=== PATIENT | male | born 1955 | race Caucasian/White ===

== ENCOUNTER 2019-05-27 13:55 | Outpatient (CLI) | payer MEDICAID, SELFPAY | END 2019-05-27 14:15 | PROVIDERS: Visit Provider Orthopaedic Surgery | DX: Z01.818 Encounter for other preprocedural examination (principal) ==

== ENCOUNTER 2019-06-02 05:31 | Day surgery (SDC) | payer MEDICAID, SELFPAY ==
[2019-05-27 13:50] VITALS: BP 175/97; PULSE 94; RESP 16; TEMP 37.4; O2SAT 97
--- NOTE | 2019-05-28 12:26 | NUR.NOTE ---
05/28/19 1225: This RN spoke with pt. on phone regarding high BP. Pt. stated he visited [facility] express clinic, Yudy Hairston DNP. BP reported by pt was 136/86 pulse 61, pt. 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 Pt. stated he is going to keep a BP log daily up until surgery, and will call pre-op with any changes. This RN left a message with [facility] for provider notes to be faxed to pre-op. Wally Caro CRNA aware of current situation with pt, and is informed of phone call. All are in agreement of plan to assess DOS, and for pt. to call if he has elevated BP from now until DOS.Nursing Note:
--- NOTE | 2019-06-02 11:38 | W.PM.DSUDISC ---
Discharge Plan Disposition Patient Disposition: HOME Condition: Good Discharge Details Reason For Visit: Rotator cuff surgery cancelled due to hypertension Attending Provider: Jed Fontenot Primary Care Provider: Unknown,Unknown Home Meds and New Rx's Prescriptions: New tizanidine 4 mg tablet 4 mg PO BID PRN (Reason: muscle spasticity) Qty: 30 RF: 0 tramadol 50 mg tablet 50 mg PO Q6H PRN (Reason: pain) Qty: 60 RF: 0 amlodipine 2.5 mg tablet 2.5 mg PO DAILY Qty: 30 RF: 0 hydrochlorothiazide 12.5 mg tablet 12.5 mg PO DAILY Qty: 30 RF: 0 Continued tizanidine 4 mg tablet 4 mg PO BID PRNRF: 0 clonazepam 0.5 mg tablet 0.5 mg PO DAILY RF: 0 lidocaine 5 % adhesive patch,medicated 3 patch TP DAILY RF: 0 naproxen 500 mg tablet 500 mg PO BID RF: 0 oxycodone-acetaminophen 5-325 mg tablet 1 tab PO Q8H MDD 15 PRN (Reason: pain) Qty: 9 RF: 0 zolpidem 10 MG tablet 10 mg PO HS PRN PRNRF: 0 Centrum Silver 1 EACH tablet 1 tab PO DAILY RF: 0 gabapentin 300 mg Capsule 300 mg PO TID RF: 0 Discharge Instructions Additional Instructions: Follow up with for blood pressure check in 2 weeks. Take the blood pressure medications daily --amlodipine and hydrochlorothiazide.. Activity:: Activity as Tolerated Diet:: As Tolerated Discharge Orders Discharge Orders: Discharge Order (Routine); Ordered 06/02/19 Ordered By: Jed Fontenot DS: Diagnosis Discharge Diagnosis (1) Tendonitis of left rotator cuff: Status: Acute (2) Hypertension: Status: Chronic
--- NOTE | 2019-06-02 13:12 | NUR.NOTE ---
Pt's surgery for left rotator cuff repair canceled today per Dr. Fontenot r/t uncontrolled blood pressure (see previous notes). Care management in to speak with pt prior to discharge to discuss available resources and establishing care with PCP near pt's home. Pt also received [address] Fontenot. FYI: Pt became quite angry with escalating behavior when nurse was giving pt rx for Tramadol with pt standing up and telling nurse to keep rx for Tramadol because it didn't do anything for him and was glorified aspirin. Pt made aware that he could receive free lunch for him and his transportation in cafeteria, pt stated he didn't want anything from this place! Dr. Fontenot made aware of pt's behavior and shredded rx for Tramadol and distributed rx for Oxycodone with APAP (5/325) which did make pt appear to be more at ease. RN walked pt out of [facility] where his transportation was waiting for him. Pt, again, was made aware that he and his transportation could go to cafeteria if he wanted and receive free lunch, pt verbalized understanding and thanked RN. Pt aware of f/u appt with Dr. Fontenot in 2 wks and was given appt card prior to discharge. Chris Whyte RN
== END 2019-06-02 13:30 | disposition home or self-care (01) ==
PROVIDERS: PCP Student in an Organized Health Care Education/Training Program; Visit Provider Orthopaedic Surgery
DX: M75.82 Other shoulder lesions, left shoulder (principal); Z53.09 Procedure and treatment not carried out because of other contraindication; R03.0 Elevated blood-pressure reading, without diagnosis of hypertension; Y66 Nonadministration of surgical and medical care
CPT/HCPCS: J2001; J2250; J2704; J3010

== ENCOUNTER 2019-06-02 07:04 | Emergency (ER) | payer MEDICAID, SELFPAY ==
[2019-06-02 07:09] VITALS: BP 154/100; PULSE 58; RESP 18; TEMP 36.4; O2SAT 96
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
[2019-06-02 07:26] VITALS: BP 168/99; PULSE 62; RESP 18; TEMP 36.7; O2SAT 98
[2019-06-02 07:27] VITALS: BP 170/98; PULSE 57; O2SAT 98
[2019-06-02 07:28] VITALS: BP 168/99; PULSE 63
[2019-06-02] MEDS: Ketorolac 30 MG/ML VIAL IM (07:33)
[2019-06-02 09:31] VITALS: BP 168/98; PULSE 55; RESP 18; O2SAT 98
[2019-06-02 09:32] VITALS: BP 180/114
--- NOTE | 2019-06-02 13:50 | CMPROGNOTE_ITS ---
- If Service Date Differs Date of service: 06/02/19 Time of Service: 13:50 Care Management Progress Note S/O: KAUSHIK met with Juan in day surgery he states he does not have a primary care provider. CM contacted previous providers office and was directed to [facility] in which Juan was last seen in 2016. At that time Juan was discharged from the primary care practice due to substance seeking behaviors and was [facility]2018 patient was seen by Orthopedics in [place], [place] and did not follow up with appointment after initial visit. Per primary care office he was seeing a F[facility] P[facility] TURNER at the [place], CM left a message for Estella Hester at [phone] to verify information. Juan has been to several primary cares in the [facility] and may have difficulty finding a primary care practice in that area. CM contacted [facility] and made a re ferral for [place] medicaid nurse to assist with establishing primary care and coordination of shoulder repair. 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 He is agreeable to [facility] and is requesting a prescription for Clonidine prior to discharge from day surgery. CM explained that provider will treat his blood pressure and that other prescriptions would be at the discretion of the provider. KAUSHIK has requested [facility] follow up [place] to establish care in Juan's area. P: Juan will be contacted by [facility] to establish care coordination through [place]. Medicaid and assistance with primary care provider. CM will await return call from the [facility] to identify if there are supports [facility] including primary care.
--- NOTE | 2019-06-02 13:50 | PDOC.ERCMPRO ---
- If Service Date Differs Date of service: 06/02/19 Time of Service: 13:50 Care Management Progress Note S/O: CM met with Juan in day surgery he states he does not have a primary care provider. CM contacted previous providers office and was directed to [facility] office in which Juan was last seen in 2016. At that time Juan was discharged from the primary care practice due to substance seeking behaviors and was planning on [facility] In 04/2018 patient was seen by Orthopedics in [place], [place] and did not follow up with appointment after initial visit. Per primary care office he was seeing a TAILOR FITTER at the [place], CM left a message for Estella Hester at [phone] to verify information. Juan has been to several primary cares in the [facility] and may have difficulty finding a primary care practice in that area. CM contacted [facility] and made a referral for [place] medicaid nurse to assist with establishing primary care and coordination of shoulder repair. 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 He is agreeable to [facility] and is requesting a prescription for Clonidine prior to discharge from day surgery. CM explained that provider will treat his blood pressure and that other prescriptions would be at the discretion of the provider. has requested [facility] follow up [place] to establish care in Juan's area. P: Juan will be contacted by [facility] to establish care coordination through [place]. Medicaid and assistance with primary care provider. CM will await return call from the [facility] to identify if there are supports [facility] including [facility] care.
== END 2019-06-02 09:46 | disposition short-term general hospital (02) ==
PROVIDERS: Emergency Provider Student in an Organized Health Care Education/Training Program; PCP Student in an Organized Health Care Education/Training Program
DX: M65.812 Other synovitis and tenosynovitis, left shoulder (principal)
CPT/HCPCS: 93005; 96372; 99284; 93010; 99283; J1885

== ENCOUNTER 2019-06-30 12:54 | Observation (INO) | payer MEDICAID, SELFPAY ==
[2019-06-30] VITALS (11 sets, daily range): BP systolic 138–180; BP diastolic 69–98; PULSE 54–87; RESP 14–22; TEMP 36.3–37; O2SAT 94–99
[2019-06-30] MEDS: Lactated Ringers 1,000 ML 80 ML IV (07:52)
[2019-06-30] MEDS: ceFAZolin 2 GM/50 ML BAG IVPB ×3 (11:05→21:25)
[2019-06-30] MEDS: EPINEPHrine 1 MG/ML AMP pres-free (11:32)
[2019-06-30] MEDS: Bupivacaine 0.5% Pres-Free 30 ML VIAL (11:32)
[2019-06-30] MEDS: POTASSIUM CHLORIDE/0.9% NACL 1,000 ML 150 MEQ IV (15:23)
[2019-06-30] MEDS: HYDROcodone 5/Acetaminophen 325 TAB PO (15:53)
[2019-06-30] MEDS: Gabapentin 300 MG CAP 600 MG PO ×2 (15:59→21:26)
[2019-06-30] MEDS: Ketorolac 30 MG/ML VIAL IVP ×2 (17:45→23:59)
[2019-06-30] MEDS: oxyCODONE-CR 10 MG TABCR PO (17:46)
[2019-06-30] MEDS: Zolpidem 10 MG TAB PO (21:26)
[2019-06-30] MEDS: clonazePAM 0.5 MG TAB PO (21:26)
[2019-06-30] MEDS: Normal Saline Flush 10 ML SYR IV (23:59)
[2019-07-01] VITALS: BP 138/84; PULSE 61; RESP 19; TEMP 36.8; O2SAT 96
[2019-07-01 03:23] VITALS: BP 172/83; PULSE 67; RESP 19; TEMP 37; O2SAT 97
[2019-07-01] MEDS: ceFAZolin 2 GM/50 ML BAG IVPB ×2 (04:07→09:48)
[2019-07-01] MEDS: Ketorolac 30 MG/ML VIAL IVP ×2 (05:27→10:32)
[2019-07-01] MEDS: oxyCODONE-CR 10 MG TABCR PO (05:27)
[2019-07-01] MEDS: Normal Saline Flush 10 ML SYR IV ×3 (05:28→11:54)
[2019-07-01] MEDS: POTASSIUM CHLORIDE/0.9% NACL 1,000 ML 150 MEQ IV (07:54)
[2019-07-01 08:38] VITALS: BP 168/90; PULSE 62; RESP 16; TEMP 37.1; O2SAT 95
[2019-07-01] MEDS: hydroCHLOROthiazide 12.5 MG TAB PO (09:12)
[2019-07-01] MEDS: amLODIPine 2.5 MG TAB PO (09:12)
[2019-07-01] MEDS: Gabapentin 300 MG CAP 600 MG PO ×2 (09:12→13:59)
[2019-07-01] MEDS: Pantoprazole 40 MG TABCR PO (09:12)
[2019-07-01] MEDS: Multivitamin w/Minerals TAB 1 TAB PO (09:12)
--- NOTE | 2019-07-01 09:12 | INITIAL_ITS ---
- If Service Date Differs Date of service: 07/01/19 Time of Service: 09:12 Care Management Initial Assess REASON FOR HOSPITALIZATION:: Post-op left rotator cuff PAST MEDICAL HISTORY/PAST SURGICAL HISTORY:: HTN PREVIOUS FUNCTIONAL STATUS/SOCIAL/FAMILY SUPPORTS:: Nayan lives alone in [place], [place] he has two sons and a grandson that live local to him. 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 Nayan is independent with ADL's and caring for himself. He feels that he has good support at home. Juan has a provider at the [place] in [facility]. CURRENT FUNCTIONAL STATUS:: Nayan is sitting up in bed he is alert and engaged during assessment. He states he is planning on returning home today and his friend will transport. He states he is having increased pain and having more feeling in that shoulder. He would like to just take the pain medications orally and not use the IV if not needed. Nayan states his Grandson will be helping him at home when he returns. Juan states he has been checking his blood pressure frequently and his numbers have improved. He reports his systolic is in the 130's and that his [facility] provider recently adjusted his medications. Has patient been provided with information about the portal?: Yes Did the patient sign up for the portal?: No (declined ) CODE STATUS:: Full Code INSURANCE COVERAGE / FINANCIAL ISSUES:: Medicaid, [place] for medications and primary care CURRENT HOME/COMMUNITY SERVICES/EQUIPMENT:: None PRIMARY CARE PHYSICIAN:: [facility] POTENTIAL DISCHARGE NEEDS:: Follow up with as directed and primary care as needed. PT to be determined with provider. PATIENT/FAMILY EDUCATION NEEDS:: Discharge education, limitations and follow up plan of care, including ask me three and self management ANTICIPATED BARRIERS TO DISCHARGE:: None TRANSPORTATION:: Via private car with friend Gunnar PLAN:: Juan will be discharged home when medically ready per provider, anticipate he will have follow up as outpatient and not need any additional services. CM will continue to assess for ongoing discharged needs.
[2019-07-01] MEDS: Docusate Sodium 100 MG CAP PO ×2 (09:13→13:59)
[2019-07-01] MEDS: HYDROcodone 5/Acetaminophen 325 TAB PO (09:18)
[2019-07-01 11:20] VITALS: BP 125/71; PULSE 71; RESP 17; TEMP 37.2; O2SAT 95
[2019-07-01] MEDS: Acetaminophen 325 MG TAB 650 MG PO (11:53)
[2019-07-01] MEDS: MORPHine 10 MG/ML VIAL IVP (11:54)
--- NOTE | 2019-07-01 12:38 | W.PM.DS.N ---
Date of service: 07/01/19 Time of Service: 12:38 DS: Diagnosis Discharge Diagnosis (1) Complete rotator cuff rupture of left shoulder: Status: Acute Discharge Plan Disposition Patient Disposition: HOME Condition: Good Discharge Details Reason For Visit: POST-OP L ROTATOR CUFF REPAIR Admit Date/Time: 06/30/19 12:54 Admit Provider: Jed Fontenot Attending Provider: Jed Fontenot Primary Care Provider: Jennifer Millan Hospital Course Hospital Course: Patient was taken to the operating room on the day of admission on 06/30/2019 where he underwent a repair of a large tear of the rotator cuff. The cuff tear was mostly mid substance and also off the supraspinatus attachment site. 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 He was admitted for observation and pain control postop due to his prior history of substance abuse. He did surprisingly well postop. His scalene block wore off in the late a.m. on 07/01/2019. Even when the block was worn off his pain was well controlled with the multimodal pain regimen that was instituted. He felt he could handle the pain at home with oral medications. He was afebrile. Vital signs were stable including good control of his hypertension. It was felt that he had completed acute care phase of the hospitalization could be safely discharged home. Home Meds and New Rx's Prescriptions: New ibuprofen 800 mg tablet 800 mg PO TID Qty: 60 RF: 0 hydrocodone-acetaminophen 5-325 mg tablet 1 tab PO Q6H PRN (Reason: pain) Qty: 30 RF: 0 tizanidine 4 mg capsule 4 mg PO BID PRN (Reason: muscle spasticity) Qty: 30 RF: 0 No Action tizanidine 4 mg capsule 4 mg PO TID RF: 0 clonazepam 0.5 mg tablet 0.5 mg PO HS RF: 0 lidocaine 5 % adhesive patch,medicated 3 patch TP DAILY RF: 0 zolpidem 10 MG tablet 10 mg PO HS PRN PRNRF: 0 Centrum Silver 1 EACH tablet 1 tab PO DAILY RF: 0 gabapentin 300 mg Capsule 600 mg PO TID RF: 0 amlodipine 2.5 mg tablet 2.5 mg PO DAILY Qty: 30 RF: 0 hydrochlorothiazide 12.5 mg tablet 12.5 mg PO DAILY Qty: 30 RF: 0 Discharge Instructions Additional Instructions: Use sling/pillow at all times even to sleep. Sleep in recliner or propped up on pillows. May remove sling/pillow to shower and dress. When out of sling, keep L arm at your side. Don't reach away from your body with L arm. Remove dressings, shower, and get incision wet on . Leave incision uncovered when it is dry and sealed. Can start to use lidocaine patches on L shoulder after you remove the post-op dressings on . Apply cryocuff to L shoulder 4 times/day for 1 hour each time. Follow up with in 2 weeks. Take ibuprofen 3 times/day as prescribed to decrease inflammation and swelling in L shoulder. Take the hydrocodone for breakthru pain, if needed. Referrals: Jed Fontenot MD [ [facility] STAFF PHYSICIAN] - (F/U in 2 weeks.) Activity:: Activity as Tolerated Equipment/Supplies:: sling/pillow orthosis Diet:: As Tolerated Discharge Orders Discharge Orders: Discharge Order (Routine); Ordered 07/01/19 Ordered By: Jed Fontenot DS: Summary Status at Discharge Functional status at discharge: independent ambulation Overall status at discharge: patient is progressing back to baseline Mental Status: mental status grossly normal Speech and Movement: speech and movement normal Mood: congruent mood Affect: normal affect Exam Psych Mental Status: mental status grossly normal Speech and Movement: speech and movement normal Mood: congruent mood Affect: normal affect DS: Data Vitals/I&O Vitals and I&O: Vital Signs Temperature 37.1 C 07/01/19 08:38 Temperature Source Tympanic 07/01/19 08:38 Pulse 62 07/01/19 08:38 Pulse Rhythm Regular 07/01/19 07:43 Respiratory Rate 16 07/01/19 08:38 Respiratory Effort Non-Labored 07/01/19 07:43 Respiratory Depth Normal 07/01/19 07:43 Respiratory Pattern Normal 07/01/19 07:43 Blood Pressure 168/90 H 07/01/19 08:38 Pulse Oximetry 95 07/01/19 08:38 Respiratory End-tidal CO2 30 06/30/19 14:40 Oxygen Delivery Method Room Air 07/01/19 08:38 Oxygen Flow Rate 0 07/01/19 08:38 Pain Level 8 07/01/19 11:54 Intake & Output 06/30/19 07/01/19 07/01/19 23:59 11:59 23:59 Intake Total 2370 / 2420 240 / 240 Balance 2370 / 2420 240 / 240 Intake: IV 1800 / 1850 Oral 570 / 570 240 / 240 Other: Urine Appearance Clear Clear Emesis Description None PFSH Social History (Updated 05/27/19 @ 13:32 by Armida Elliott) Smoking/Tobacco Use Status: Never Alcohol Intake: current Alcohol Intake frequency: 3 or more drinks per day Alcohol type: hard liquor Drug use: Occasionally Substance use type: marijuana Details: 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
--- NOTE | 2019-07-02 06:42 | ROE_ITS ---
REPORT OF OPERATIVE PROCEDURE DATE OF PROCEDURE June 30, 2019 PREOPERATIVE DIAGNOSES 1. Torn rotator cuff left. 2. DJD AC joint left. POSTOPERATIVE DIAGNOSES 1. Torn rotator cuff left. 2. DJD AC joint left. PROCEDURES 1. Repair of rotator cuff tear left. 2. Excision to sub clavicle left. ANESTHESIA General, supplemented with a scalene nerve block. SURGEON Jed Fontenot M.D. [employer] TIM Bui INDICATIONS This is a 64-year-old white male with a history of chronic rotator cuff tear on the left. This was co nfirmed with an MRI scan two years ago. He was scheduled to have surgery at that time, but he backed out. He presented again in April of 2019 complaining of disabling pain from his rotator cuff tear. He felt that he was not only ready, but desperate to have the repair of his rotator cuff tear. He was made aware of the fact that the delay in treatment may have compromised his results of rotator cuff repair. He said he understood this, but he has to do something. I explained to him that it looked lik e he had DJD of his AC joint as well as a full thickness large tear of his rotator cuff. I told him n ot only would I address the rotator cuff tear, but I would address the DJD of his AC joint as well by means of an excision of the distal clavicle. It was also discussed with the patient the possibility that the tear could not be repaired. The patient understood and wished to have me proceed as soon as possible. PROCEDURE The patient was taken to the Operating Room on 06/30/19. He was placed supine on the operating table a nd a general anesthetic was administered. He was then positioned in the parikh chair position. The l eft shoulder was prepped and draped free in the usual sterile fashion. The patient also received a s calene nerve block preoperatively. I made an incision on the superior aspect of the shoulder beginning medial to the AC joint centered o ulisses the clavicle. The incision was then carried laterally across the anterolateral corner of the acro mion to about 3 or 4 cm distal to the acromion. The incision was carried down to the fascia. Subcuta neous veins were cauterized. The deltoid muscle was split in line with its fibers at the anterolatera l corner of the acromion and then the deltoid was sharply reflected from the anterior acromion. The f lection of the deltoid continued to the AC joint capsule and continued to the distal clavicle. When t he deltoid was split, there was noted to be abundant joint fluid in the subacromial space. An anterio r acromioplasty was then performed with the oscillating saw to improve visualization. The rotator cuf f had a mainly mid substance tear, but it had some tearing of the cuff from its bed on the greater tu berosity, mainly on the supraspinatus insertion. There was prominent osteophytes that were forming as well over the tuberosity. The area of the footprint of the supraspinatus was prepared for the repair by using a rongeur followed by a rasp to remove the hypertrophic spurs and create a bleeding bed for reattachment. The tear of the mid substance of the cuff was really quite extensive and complex. I be ruddy by debriding the tear to fresh margins. Posteromedially, I started converging the margins of the tear using interrupted szbaac-pl-wdjvj sutures of # #0-Vicryl suture material along with some tractio n sutures. Once I repaired the apex of the tear and started medially and started laterally, the tear became easier to repair. I needed to bring the supraspinatus tendon down to bone, so I put a 6.5 sutu re anchor, passed the sutures from the anchor through the leading edge of the supraspinatus tendon an d rotator interval and then tied the sutures down securing the tendon to bone. I then used a Versalok anchor in the ends of the sutures from the first anchor to perform a double-layer repair. I then con tinued to repair the remainder of the tear with interrupted lqurpv-br-tfatj sutures and #1-Vicryl sut ure material. At the conclusion of the tear, I was able to easily bring the left arm to the side with out damaging the repair and without excessive tension. The wound was irrigated with saline solution. The wound margins were infiltrated with 0.5% Marcaine with epinephrine solution. The distal clavicle subperiosteally exposed and then the distal cm of the clavicle was transected wit h an oscillating saw and the distal clavicle was excised. The resected end of the clavicle was packed with bone wax to limit postoperative bleeding. Three drill holes were placed through the anterior acromion from superior to inferior. I then passed sutures of #2 FiberWire through the drill holes and then through the full thickness of the anterior d eltoid in a tvxqjv-ib-ixybo fashion. The sutures were tied tightly securing the anterior deltoid to t he acromion. The AC joint capsule and periosteum over the distal clavicle were approximated with inte rrupted hfskjb-am-xdgty sutures of #1-Vicryl suture material. I then over sewed the superficial delt oid fascia to the periosteum over the acromion with interrupted fcezkm-ev-hpiyg sutures of #1-Vicryl suture material to provide an extra layer of repair of the deltoid. Finally the deltoid muscle split laterally was repaired with interrupted cxnaol-vn-pqmhh of #1-Vicryl suture material. The subcu was approximated with interrupted #2-0 Vicryl sutures and a running subcuticular suture of #4 absorbable suture was then performed, supplemented by tissue glue and Steri-Strips. The wound was dressed with Xeroform gauze, sterile gauze, 4x4s, ABD pads and taped with formalistic tape for a ligh t pressure dressing. The patient's left upper extremity was placed in a sling abduction pillow orthos is. Cryo/Cuff was applied to the left shoulder. The patient's anesthesia was reversed without complic ation. Estimated blood loss was 75 cc. The patient tolerated the procedure well and was discharged to the Recovery Room in good condition. B ecause of the fact that this was an open repair and because of the patient's prior history of opioid abuse, he was admitted postoperatively OBV for pain control.
== END 2019-07-01 14:15 | disposition home or self-care (01) ==
LOC: SUR 14:47 → DSU 14:47 → SUR 14:49 → MS 14:57
PROVIDERS: Admitting Provider Orthopaedic Surgery; PCP Student in an Organized Health Care Education/Training Program; Visit Provider Orthopaedic Surgery
PROC: 0LM20ZZ Reattachment of Left Shoulder Tendon, Open Approach (ICD-10-PCS; CPT 23412; principal; 2019-06-30 08:30)
DX: M75.122 Complete rotator cuff tear or rupture of left shoulder, not specified as traumatic (principal); M19.112 Post-traumatic osteoarthritis, left shoulder; G89.18 Other acute postprocedural pain; M25.512 Pain in left shoulder; I10 Essential (primary) hypertension; Z23 Encounter for immunization
CPT/HCPCS: 23412; 23120; 23130; 76942; C1713; NC; G0378; J0171; J0690; J1100; J1885; J2001; J2250; J2270; J2370; J2405; J2704; L3670

== ENCOUNTER 2019-08-06 10:31 | Outpatient (CLI) | payer MEDICAID, SELFPAY ==
--- NOTE | 2019-08-06 09:45 | DI.RAD_ITS ---
EXAM: XR SHOULDER LT 1V CLINICAL HISTORY: check anchor placement. TECHNIQUE: 2D digital imaging was performed. COMPARISON: MRI UPPER EXT ANY JOINT WO CONTRAST from 08/23/2018 FINDINGS: BONES: No acute fracture is present. Postsurgical changes of resection of the distal clavicle. Two o rthopedic anchors are seen within the humeral head. There are hypertrophic changes seen at the acrom ion. Alignment of the glenohumeral joint appears within normal limits on this single view. JOINTS: No dislocation present. SOFT TISSUE: Normal. DATA REPOSITORY: RADIATION DOSE DELIVERED:
== END 2019-08-06 10:51 ==
PROVIDERS: PCP Student in an Organized Health Care Education/Training Program; Visit Provider Orthopaedic Surgery
DX: M75.122 Complete rotator cuff tear or rupture of left shoulder, not specified as traumatic (principal); Z47.89 Encounter for other orthopedic aftercare
CPT/HCPCS: 73020

== ENCOUNTER 2019-11-19 10:17 | Emergency (ER) | payer MEDICAID, SELFPAY ==
--- NOTE | 2019-11-19 10:15 | DI.RAD_ITS ---
EXAM: XR HIP LT COMPLETE AP PELVIS INDICATION: L hip/buttock pain. COMPARISON: CR PELVIS AP from 05/29/2013 TECHNIQUE: 2D digital imaging was performed. FINDINGS: There are advanced degenerative disc changes in the lumbar spine. Degenerative changes are also seen at the SI joints. There is mild bilateral acetabular spurring. The hip joint spaces are well maint ained. There is a moderate quantity of stool. There is no abnormal bowel dilatation. There is no a bnormal gas collection in the soft tissues. IMPRESSION: Severe degenerative changes of the lower lumbar spine. Mild degenerative changes of the hips. DATA REPOSITORY: RADIATION DOSE DELIVERED:
[2019-11-19 10:22] VITALS: BP 131/72; PULSE 63; RESP 20; TEMP 36.7; O2SAT 97
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
[2019-11-19 11:54] LABS: Abs Immature Grans 0.01 10^3/uL (0.0-0.06); Absolute Basophil Count 0.02 10^3/uL (0.0-0.2); Absolute Eosinophil Count 0.17 10^3/uL (0.0-0.7); Absolute Lymphocyte Count 1.53 10^3/uL (1.2-3.4); Absolute Monocyte Count 0.42 10^3/uL (0.1-0.8); Absolute Neutrophil Count 2.25 10^3/uL (1.2-6.7); Basophils % 0.5; Eosinophils % 3.9; HCT 40.8 % (40.0-50.0); HGB 13.1 g/dL (13.5-17.5); Immature Grans % 0.2; Lymphocytes % 34.8; MCH 29.9 pg (27.0-33.0); MCHC 32.1 % (32.0-36.0); MCV 93.2 fL (80-95); MPV 10.6 fL (8.0-11.0); Monocytes % 9.5; Neutrophils % 51.1; Platelet Count 169 10^3/uL (130-400); RBC 4.38 10^6/uL (4.36-5.78); RDW 13.7 % (11.8-14.1); RDW-SD 47.2 fL
[2019-11-19] MEDS: Normal Saline Flush 10 ML SYR IVP (11:55)
[2019-11-19 12:11] LABS: ALT 31 U/L (16-63); AST 27 U/L (15-37); Albumin 4.1 g/dL (3.4-5.0); Alkaline Phosphatase 103 U/L (46-116); Anion Gap 7.9 mmol/L (3-11); BUN 17 mg/dL (7-18); Bilirubin, Total 1.1 mg/dL (0.2-1.0); CO2 26.1 mmol/L (21.0-32.0); CREATININE 0.72 mg/dL (0.70-1.30); Calcium 9.1 mg/dL (8.5-10.1); Chloride 106 mmol/L (98-107); Glucose 94 mg/dL (74-106); Potassium 4.1 mmol/L (3.5-5.1); Sodium 140 mmol/L (136-145); Total Protein 7.6 g/dL (6.4-8.2)
[2019-11-19] MEDS: Normal Saline - Diluent 50 ML VIAL IV (12:47)
[2019-11-19] MEDS: Omnipaque 350 MG/ML 100 ML BTL IJ (12:48)
--- NOTE | 2019-11-19 12:55 | DI.CT_ITS ---
EXAM: CT PELVIC W CLINICAL HISTORY: Atraumatic deep left buttock pain with swelling. TECHNIQUE: Imaging Protocol: Axial computed tomography images with coronal and sagittal reformatted images were created and reviewed. CONTRAST MATERIAL: Intravenous: Omnipaque 350 Contrast volume:100 ml Contrast route:IV - Oral: / no COMPARISON: CT ABD PELVIS WO CONTRAST from 09/11/2011 CR PELVIS AP from 05/29/2013 CR XR HIP LT COMPLETE AP PELVIS from 11/19/2019 FINDINGS: Bladder: Symmetric distention, no gross wall thickening. Bowel: No obstruction or bowel wall thickening. Normal appendix. Peritoneal cavity: No ascites, collection or mesenteric inflammatory response. Bones: Severe degenerative disc changes in the lower lumbar spine. Degenerative changes of the facet joints. Wvhv-it-mligetph degenerative changes are seen in the hips. No lytic or blastic lesions. Soft tissues: No evidence abscess, fluid collection or subcutaneous edema. No inguinal or umbilical hernia. No abnormalities seen in the left buttock. The musculature appears symmetric. IMPRESSION: Unremarkable CT scan of the pelvis. RADIATION DOSE DELIVERED: Total DLP DATA REPOSITORY: All CT scans at this facility are submitted to the National Radiology Data Registry (NRDR) Dose Index Registry (DIR) with the [employer] (ACR). RADIATION OPTIMIZATION: All CT scans at this facility use at least one of these dose optimization te chniques: automated exposure control; mA and/or kV adjustment per patient size (includes targeted exa ms where dose is matched to clinical indication); or iterative reconstruction.
[2019-11-19 14:06] LABS: C-Reactive Protein < 0.05 mg/dL (0.0-0.3)
[2019-11-19 14:33] VITALS: BP 166/92; PULSE 60; RESP 18; TEMP 36.9; O2SAT 99
[2019-11-19 14:56] LABS: ESR 8 mm/hr (1-20)
== END 2019-11-19 15:14 | disposition home or self-care (01) ==
PROVIDERS: Student in an Organized Health Care Education/Training Program; Emergency Provider Physician Assistant; PCP Student in an Organized Health Care Education/Training Program
DX: M25.552 Pain in left hip (principal); I10 Essential (primary) hypertension
CPT/HCPCS: 80053; 85652; 96374; 96376; 99285; 72193; 73502; 85025; 86140; 99284; J3490

== ENCOUNTER 2019-12-08 00:55 | Outpatient (CLI) | payer MEDICAID, SELFPAY ==
--- NOTE | 2019-12-08 09:25 | DI.MRI_ITS ---
EXAM: MR LUMBAR SPINE WO CLINICAL HISTORY: LUMBAR SPINAL STENOSIS,M48.061, BACK PAIN. TECHNIQUE: Multiplanar multisequence MRI was performed. COMPARISON: CR XR HIP LT COMPLETE AP PELVIS from 11/19/[address] PELVIC W from 11/19/2019 FINDINGS: There is loss of disc height and broad-based disc osteophytes at T 12- L1 which cause mild neural for aminal narrowing. Similar disc osteophytes are seen at L1-2 which are eccentric toward the left, caus ing left neural foraminal narrowing. Loss of disc height and broad-based disc osteophytes are also se en at L2-3, causing bilateral neural foraminal narrowing. At L3-4, there is mild loss of disc height. There is broad-based disc bulging which is greatest laterally. There are facet joint degenerative ch anges as well as ligamentous hypertrophy, combining to produce a moderate degree of central canal faheem nosis. There is severe bilateral neural foraminal narrowing. At L4-5, there is asymmetric loss of dis c height and prominent endplate osteophytes which are eccentric toward the right. There has been prev ious surgery at this level. There is a right-sided disc herniation in the right lateral recess. There are facet degenerative changes contributing to severe right neural foraminal narrowing. At L5-S1, th ere is loss of disc height and broad-based endplate osteophytes as well as facet degenerative changes which combine to produce severe bilateral neural foraminal narrowing. There is no significant centra l canal stenosis. The aorta is normal in diameter. There is mottled marrow signal without evidence of a focal lesion, likely representing red marrow reconversion. The visualized portions of the SI joint s are unremarkable. IMPRESSION: Multilevel severe degenerative disc changes and facet degenerative changes causing multilevel neural foraminal narrowing. Moderate central canal stenosis is present at L3-4. There is a right sided disc herniation in the lateral recess at L4-5. DATA REPOSITORY:
== END 2019-12-08 01:15 ==
PROVIDERS: PCP Student in an Organized Health Care Education/Training Program; Visit Provider Orthopaedic Surgery
DX: M47.816 Spondylosis without myelopathy or radiculopathy, lumbar region (principal); M48.061 Spinal stenosis, lumbar region without neurogenic claudication; M51.26 Other intervertebral disc displacement, lumbar region
CPT/HCPCS: 72148

== ENCOUNTER 2022-05-16 09:47 | Outpatient (CLI) | payer MEDICAID, SELFPAY ==
--- NOTE | 2022-05-16 09:30 | DI.RAD_ITS ---
Exam(s) XR FOOT RT COMPLETE EXAM: XR FOOT RT COMPLETE CLINICAL HISTORY: foot pain. TECHNIQUE: 2D digital imaging was performed. COMPARISON: No exams were available for comparison FINDINGS: 3 views No evidence of acute fracture or diastasis of the Lisfranc joint. Minimal degenerative changes. Mod erate size inferior calcaneal spur and calcification in the plantar fascia noted. There is a an 8 millimeter long metallic wire foreign body in the deep subcutaneous soft tissues of t he heel. No obvious radiographic evidence of osteomyelitis. IMPRESSION: Metallic wire 8 millimeter long foreign body in the deep subcutaneous soft tissue of the heel as desc ribed above. DATA REPOSITORY: RADIATION DOSE DELIVERED:
--- NOTE | 2022-05-16 09:30 | DI.RAD_ITS ---
Exam(s) XR ANKLE RT COMPLETE EXAM: XR ANKLE RT COMPLETE CLINICAL HISTORY: ankle pain. TECHNIQUE: 2D digital imaging was performed. COMPARISON: No exams were available for comparison FINDINGS: 3 views No evidence of acute fracture or widening of the ankle mortise. Talar dome unremarkable. There is a thin wire metallic foreign body in the deep soft tissues of the heel which measures 8 mill imeter length. This is subjacent to a moderate-large inferior calcaneal spur and some calcification in the plantar fascia at this level. However, there is no obvious radiographic evidence of osteomyel itis in the calcaneus at this level on the conventional lateral view. IMPRESSION: There is an 8 millimeter metallic wire foreign body in the the heel soft tissues as described above. No obvious radiographic evidence of osteomyelitis. No fractures DATA REPOSITORY: RADIATION DOSE DELIVERED:
== END 2022-05-16 09:48 | disposition home or self-care (01) ==
LOC: DIORS 09:48
PROVIDERS: PCP Student in an Organized Health Care Education/Training Program; Referring Provider Student in an Organized Health Care Education/Training Program; Visit Provider Student in an Organized Health Care Education/Training Program
DX: M25.571 Pain in right ankle and joints of right foot (principal); M79.671 Pain in right foot; M77.31 Calcaneal spur, right foot; M79.5 Residual foreign body in soft tissue
CPT/HCPCS: 73610; 73630

== ENCOUNTER 2022-08-01 11:47 | Outpatient (CLI) | payer MEDICAID, SELFPAY ==
--- NOTE | 2022-08-01 11:15 | DI.RAD_ITS ---
Exam(s) XR SHOULDER RT COMPLETE 2+V EXAM: XR SHOULDER RT COMPLETE 2+V CLINICAL HISTORY: right shoulder pain. TECHNIQUE: 2D digital imaging was performed. COMPARISON: CR XR SHOULDER LT 1V from 08/06/2019 FINDINGS: Two views: No evidence of acute fracture or dislocation. There is mild upward subluxation of the humeral head i n the osseous glenoid. Degenerative cysts are also noted in the humeral head. Mild diminution of th e subacromial space noted. Moderate degenerative changes in the AC joint. No calcifications subacro mial space. IMPRESSION: Degenerative changes as above. DATA REPOSITORY: RADIATION DOSE DELIVERED:
== END 2022-08-01 11:48 | disposition home or self-care (01) ==
LOC: DIORS 11:48
PROVIDERS: PCP Student in an Organized Health Care Education/Training Program; Referring Provider Student in an Organized Health Care Education/Training Program; Visit Provider Student in an Organized Health Care Education/Training Program
DX: M25.511 Pain in right shoulder (principal); S43.081A Other subluxation of right shoulder joint, initial encounter; M25.811 Other specified joint disorders, right shoulder
CPT/HCPCS: 73030